=== PATIENT | male | born 1955 | race Two or more races ===

== ENCOUNTER 2024-05-13 08:15 | Emergency (ER) | payer OTHER ==
[~2024-05-13] VITALS: Ht 167.6 cm; Wt 64.9 kg
[2024-05-13] MEDS ORDERED: KETOROLAC TROMETHAMINE 60 MG VIAL IM ONE (09:45)
[2024-05-13] MEDS ORDERED: TRIAMCINOLONE ACETONIDE 40 MG/ML VIAL IM ONE (09:45)
[2024-05-13] MEDS ORDERED: ORPHENADRINE CITRATE 100 MG TABLET PO ONE (09:45)
[2024-05-13] MEDS ORDERED: DICLOFENAC SODI75 MG PO (10:08)
[2024-05-13] MEDS ORDERED: NORFLEX100MG PO (10:08)
== END 2024-05-13 10:21 | disposition home or self-care (01) ==
LOC: ER 08:16
DX: M43.6 Torticollis (principal)
CPT/HCPCS: 72040; 96372; 99283; J1885; J3301